=== PATIENT | male | born 1960 | race Two or more races ===

== ENCOUNTER 2024-02-26 09:48 | Inpatient (IN) | payer MEDICAID, OTHER ==
[~2024-02-26] VITALS: Ht 167.6 cm; Wt 75.0 kg
[2024-02-26 10:16] LABS: Basophils # (auto) 0 10 ^3/uL (0-0.2); Basophils % (auto) 0.2 % (0.0-2.0); Eosinophils # (auto) 0.1 10 ^3/uL (0-0.8); Eosinophils % (auto) 2.2 % (0.0-7.0); Hematocrit 25.5 % (41.0-53.0); Hemoglobin 8.3 g/dL (13.5-17.5); Lymphocytes # (auto) 0.7 10 ^3/uL (0.4-5.4); Lymphocytes % (auto) 21.7 % (10.0-50.0); Mean Corpuscular Hemoglobin 26.6 pg (28.0-32.0); Mean Corpuscular Hgb Conc. 32.5 g/dL (32.0-36.0); Mean Corpuscular Volume 81.7 fL (80.0-100.0); Monocytes # (auto) 0.5 10 ^3/uL (0-1.3); Monocytes % (auto) 14.9 % (0.0-12.0); Nucleated Red Blood Cells % 0.1 %; Red Blood Cells 3.12 10^6/uL (4.5-5.90); Red Cell Distribution Width 20.6 % (11.8-14.3); White Blood Cell 3.3 10^3/uL (4.4-10.8)
[2024-02-26 10:35] LABS: Alanine Aminotransferase 19 U/L (7-40); Albumin 2.5 g/dL (3.2-4.8); Alkaline Phosphatase 98 U/L (46-116); Anion Gap 10 (5-15); Aspartate Aminotransferase 31 U/L (13-40); BUN/Creatinine Ratio 10.1 (10.0-20.0); Bilirubin, Total 0.8 mg/dL (0.2-1.0); Blood Alcohol < 3.0 mg/dL (<10); Blood Urea Nitrogen 11 mg/dL (9-23); Calcium 7.7 mg/dL (8.7-10.4); Carbon Dioxide 20 mmol/L (20-30); Chloride 113 mmol/L (98-107); Glucose 304 mg/dL (74-106); Magnesium 1.1 mg/dL (1.6-2.6); Sodium 143 mmol/L (136-145); Total Protein 6.1 g/dL (5.7-8.2)
[2024-02-26 10:51] VITALS: RESP 14
[2024-02-26] MEDS: POTASSIUM CHL 20MEQ/100ML 100 ML IV ONE (12:26)
[2024-02-26] MEDS: SODIUM CHLORIDE 0.9% 1,000 ML IV SCH (13:15)
[2024-02-26] MEDS ORDERED: MORPHINE SULFATE INJ 2 MG/ml SYRG IV PRN (13:15)
[2024-02-26] MEDS ORDERED: DOCUSATE SOD 100 MG CAP PO PRN (13:15)
[2024-02-26] MEDS ORDERED: NITROGLYCERIN 0.4 MG SL TAB SL PRN (13:15)
[2024-02-26 13:19] LABS: Urine Bacteria FEW /hpf (None Seen); Urine Blood TRACE /uL (Negative); Urine Clarity Clear (Clear); Urine Color Yellow (Yellow); Urine Hyaline Cast MANY /lpf (0 - 2); Urine Protein, UAD Negative (Negative); Urine Specific Gravity 1.018 (1.001-1.035); Urine Urobilinogen 2 mg/dL (Negative); Urine WBC 1 /hpf (0 - 3); Urine pH 5.5 (5.0-9.0)
[2024-02-26 13:29] LABS: Amphetamine Screen, Urine Neg (NEGATIVE); Barbiturate Scree,Urine Neg (NEGATIVE); Benzodiazephine Screen, Urine Neg (NEGATIVE); Cocaine Screen, Urine Neg (NEGATIVE); Opiate Scree,Urine Neg (NEGATIVE)
[2024-02-26 13:30] LABS: Cannabinoid Screen, Urine Neg (NEGATIVE); Phencyclidine Screen, Urine Neg (NEGATIVE)
[2024-02-26] MEDS: MAGNESIUM SULFATE 1GM/100ML 100 ML IV SCH (14:15)
[2024-02-26 15:12] LABS: % Iron Saturation 11.4 % (20-55)
[2024-02-26 15:31] LABS: Folate (Folic Acid) 15.03 ng/mL (>5.38)
[2024-02-26 15:49] LABS: INR 1.39 (0.9-1.15); Prothrombin Time 14.4 sec (9.3-11.8)
[2024-02-26] MEDS: PANTOPRAZOLE 40 MG/10 ML VIAL INJ IV ONE (16:19)
[2024-02-26] MEDS: LORazepam 2MG/ML-1ML VIAL IV ONE (16:30)
[2024-02-26] MEDS: LORazepam 2MG/ML-1ML VIAL ONE (16:36)
[2024-02-26] MEDS: LACTULOSE 20Gm/30ML SOLN PO ONE (17:00)
[2024-02-26 19:25] VITALS: PULSE 105; RESP 18; O2SAT 96
[2024-02-26] MEDS: hydrALAZINE HCL 20 MG/ML VL IV PRN (20:28)
[2024-02-26] MEDS: LACTULOSE 20Gm/30ML SOLN PO SCH (22:40)
[2024-02-26 23:10] VITALS: PULSE 106; RESP 17; O2SAT 98
[2024-02-27] VITALS (7 sets, daily range): BP systolic 150–167; BP diastolic 65–88; PULSE 88–111; RESP 17–18; TEMP 97.9–99.3; O2SAT 96–99
[2024-02-27] MEDS ORDERED: AML5T PO (01:09)
[2024-02-27] MEDS ORDERED: GABA-1250 PO (01:09)
[2024-02-27] MEDS ORDERED: METF-371 PO (01:09)
[2024-02-27 05:46] LABS: Basophils # (auto) 0 10 ^3/uL (0-0.2); Hemoglobin 10.2 g/dL (13.5-17.5); Lymphocytes # (auto) 1.2 10 ^3/uL (0.4-5.4); Neutrophils # (auto) 3.8 10 ^3/uL (1.6-8.6); White Blood Cell 6.1 10^3/uL (4.4-10.8)
[2024-02-27 05:50] LABS: Basophils % (auto) 0.5 % (0.0-2.0); Eosinophils # (auto) 0.2 10 ^3/uL (0-0.8); Eosinophils % (auto) 2.7 % (0.0-7.0); Hematocrit 30.6 % (41.0-53.0); Lymphocytes % (auto) 19.6 % (10.0-50.0); Mean Corpuscular Hemoglobin 27.1 pg (28.0-32.0); Mean Corpuscular Hgb Conc. 33.3 g/dL (32.0-36.0); Mean Corpuscular Volume 81.4 fL (80.0-100.0); Monocytes % (auto) 15.8 % (0.0-12.0); Neutrophils % (auto) 61.4 % (37.0-80.0); Red Blood Cells 3.76 10^6/uL (4.5-5.90)
[2024-02-27 06:11] LABS: Alanine Aminotransferase 22 U/L (7-40); Albumin 2.9 g/dL (3.2-4.8); Alkaline Phosphatase 99 U/L (46-116); Anion Gap 12 (5-15); Aspartate Aminotransferase 33 U/L (13-40); BUN/Creatinine Ratio 8.9 (10.0-20.0); Blood Urea Nitrogen 7 mg/dL (9-23); Calcium 8.9 mg/dL (8.7-10.4); Carbon Dioxide 21 mmol/L (20-30); Chloride 109 mmol/L (98-107); Glucose 251 mg/dL (74-106); Potassium 3.2 mmol/L (3.5-5.1); Sodium 142 mmol/L (136-145)
[2024-02-27 06:12] LABS: Bilirubin, Total 2.1 mg/dL (0.2-1.0); Total Protein 7.9 g/dL (5.7-8.2)
[2024-02-27 08:06] LABS: RPR Non Reactive (Non Reactive)
[2024-02-27] MEDS: PANTOPRAZOLE 40 MG/10 ML VIAL INJ IV SCH (08:44)
[2024-02-27] MEDS: MAGNESIUM SULFATE 1GM/100ML 100 ML IV ONE (08:45)
[2024-02-27] MEDS: POTASSIUM CHL 20MEQ/100ML 100 ML IV SCH (10:10)
[2024-02-27] MEDS ORDERED: POTASSIUM CHL 20MEQ/100ML 100 ML IV SCH (11:45)
[2024-02-27] MEDS ORDERED: DEXTROSE (50%) 50ML SYRG IV PRN (12:00)
[2024-02-27] MEDS ORDERED: CYANOCOBALAMIN 500 MCG TAB PO ONE (12:00)
[2024-02-27] MEDS: rifAXIMin 550 MG TAB PO ONE (12:15)
[2024-02-27] MEDS: ERGOCALCIFEROL 50,000 UNIT(1.25MG) CAP PO SCH (14:00)
[2024-02-27] MEDS: cefTRIAXone 1GM/50ML D5W 50 ML IV ONE (14:05)
[2024-02-27] MEDS: SODIUM CHLORIDE 0.9% 1,000 ML IV SCH (14:30)
[2024-02-27] MEDS: KETOROLAC TROMETH 30 MG/ML 1ML VIAL IV PRN (15:55)
[2024-02-27 15:58] LABS: Lactic Acid w/Reflex 4.3 mmol/L (0.4-2.0)
[2024-02-27] MEDS: ACCU-CHEK COMFORT CURVE STRIP VI SCH (17:05)
[2024-02-27] MEDS: InsuLIN REG 1unit/0.01ml Soln (100units/ml) SC SCH (17:27)
[2024-02-27 19:31] LABS: Lactic Acid w/Reflex 3.8 mmol/L (0.4-2.0)
[2024-02-27] MEDS: rifAXIMin 550 MG TAB PO SCH (22:54)
[2024-02-28] VITALS (7 sets, daily range): BP systolic 154–179; BP diastolic 73–85; PULSE 74–92; RESP 18; TEMP 97.4–98.4; O2SAT 96–99
[2024-02-28 00:31] LABS: Lactic Acid w/Reflex 3.7 mmol/L (0.4-2.0)
[2024-02-28 06:57] LABS: Basophils # (auto) 0 10 ^3/uL (0-0.2); Eosinophils # (auto) 0.2 10 ^3/uL (0-0.8); Hematocrit 30.8 % (41.0-53.0); Lymphocytes # (auto) 1.1 10 ^3/uL (0.4-5.4); Mean Corpuscular Hgb Conc. 33.3 g/dL (32.0-36.0); Monocytes # (auto) 0.9 10 ^3/uL (0-1.3)
[2024-02-28 07:07] LABS: Basophils % (auto) 0.4 % (0.0-2.0); Eosinophils % (auto) 2.5 % (0.0-7.0); Hemoglobin 10.2 g/dL (13.5-17.5); Lymphocytes % (auto) 16.5 % (10.0-50.0); Mean Corpuscular Hemoglobin 27.2 pg (28.0-32.0); Mean Corpuscular Volume 81.7 fL (80.0-100.0); Monocytes % (auto) 14.1 % (0.0-12.0); Neutrophils # (auto) 4.3 10 ^3/uL (1.6-8.6); Neutrophils % (auto) 66.5 % (37.0-80.0); Nucleated Red Blood Cells % 0.1 %; Red Blood Cells 3.76 10^6/uL (4.5-5.90); White Blood Cell 6.5 10^3/uL (4.4-10.8)
[2024-02-28 07:10] LABS: Red Cell Distribution Width 21.5 % (11.8-14.3)
[2024-02-28 07:23] LABS: Alanine Aminotransferase 22 U/L (7-40); Alkaline Phosphatase 102 U/L (46-116); Anion Gap 10 (5-15); Aspartate Aminotransferase 29 U/L (13-40); BUN/Creatinine Ratio 10.3 (10.0-20.0); Blood Urea Nitrogen 7 mg/dL (9-23); Calcium 8.8 mg/dL (8.7-10.4); Carbon Dioxide 21 mmol/L (20-30); Chloride 109 mmol/L (98-107); Glucose 229 mg/dL (74-106); Magnesium 1.4 mg/dL (1.6-2.6); Potassium 3.1 mmol/L (3.5-5.1); Sodium 140 mmol/L (136-145)
[2024-02-28 07:24] LABS: Bilirubin, Total 2.1 mg/dL (0.2-1.0); Total Protein 7.6 g/dL (5.7-8.2)
[2024-02-28 07:27] LABS: Lactic Acid w/Reflex 2.8 mmol/L (0.4-2.0)
[2024-02-28] MEDS: cefTRIAXone 1GM/50ML D5W 50 ML IV SCH (09:24)
[2024-02-28] MEDS ORDERED: CYANOCOBALAMIN 500 MCG TAB PO SCH (10:00)
[2024-02-28] MEDS: SODIUM CHLORIDE 0.9% 1,000 ML IV SCH (21:57)
[2024-02-29] VITALS (9 sets, daily range): BP systolic 135–171; BP diastolic 70–84; PULSE 77–98; RESP 15–18; TEMP 97.9–98.2; O2SAT 96–100
[2024-02-29 07:49] LABS: Basophils # (auto) 0 10 ^3/uL (0-0.2); Eosinophils # (auto) 0.1 10 ^3/uL (0-0.8); Neutrophils # (auto) 4.3 10 ^3/uL (1.6-8.6)
[2024-02-29 07:53] LABS: Basophils % (auto) 0.6 % (0.0-2.0); Eosinophils % (auto) 2.2 % (0.0-7.0); Hematocrit 32.4 % (41.0-53.0); Hemoglobin 10.8 g/dL (13.5-17.5); Lymphocytes # (auto) 1.2 10 ^3/uL (0.4-5.4); Lymphocytes % (auto) 18.5 % (10.0-50.0); Mean Corpuscular Hemoglobin 27.2 pg (28.0-32.0); Mean Corpuscular Hgb Conc. 33.3 g/dL (32.0-36.0); Mean Corpuscular Volume 81.4 fL (80.0-100.0); Monocytes % (auto) 14.3 % (0.0-12.0); Neutrophils % (auto) 64.4 % (37.0-80.0); Nucleated Red Blood Cells % 0.2 %; Red Blood Cells 3.98 10^6/uL (4.5-5.90); White Blood Cell 6.7 10^3/uL (4.4-10.8)
[2024-02-29 07:56] LABS: Red Cell Distribution Width 22.4 % (11.8-14.3)
[2024-02-29 08:14] LABS: Alanine Aminotransferase 24 U/L (7-40); Albumin 2.9 g/dL (3.2-4.8); Alkaline Phosphatase 103 U/L (46-116); Anion Gap 14 (5-15); Aspartate Aminotransferase 31 U/L (13-40); BUN/Creatinine Ratio 14.3 (10.0-20.0); Blood Urea Nitrogen 9 mg/dL (9-23); Calcium 8.5 mg/dL (8.7-10.4); Carbon Dioxide 17 mmol/L (20-30); Chloride 107 mmol/L (98-107); Glucose 223 mg/dL (74-106); Lactic Acid w/Reflex 2.4 mmol/L (0.4-2.0); Magnesium 1.3 mg/dL (1.6-2.6); Phosphorus 3.7 mg/dL (2.4-5.1); Potassium 3.6 mmol/L (3.5-5.1); Sodium 138 mmol/L (136-145)
[2024-02-29 08:15] LABS: Bilirubin, Total 2.3 mg/dL (0.2-1.0); Total Protein 7.6 g/dL (5.7-8.2)
[2024-02-29] MEDS: ENOXAPARIN SOD 40 MG/0.4 ML SYRINGE SC ONE (09:30)
[2024-02-29] MEDS: ENOXAPARIN SOD 40 MG/0.4 ML SYRINGE SC SCH (10:00)
[2024-02-29] MEDS: FUROSEMIDE 40 MG/4 ML VIAL IV ONE (11:48)
[2024-02-29] MEDS: SPIRONOLACTONE 25 MG TAB PO ONE (11:48)
[2024-02-29] MEDS: INSULIN LANTUS (GLARGINE) 1 /0.01ml (100units/ml) SC SCH (22:00)
[2024-03-01] VITALS (9 sets, daily range): BP systolic 124–163; BP diastolic 56–86; PULSE 81–92; RESP 15–20; TEMP 97.9–98.7; O2SAT 96–99
[2024-03-01 05:51] LABS: Basophils # (auto) 0 10 ^3/uL (0-0.2); Basophils % (auto) 0.6 % (0.0-2.0); Eosinophils # (auto) 0.2 10 ^3/uL (0-0.8); Lymphocytes # (auto) 1.2 10 ^3/uL (0.4-5.4); Mean Corpuscular Volume 81.1 fL (80.0-100.0); Nucleated Red Blood Cells % 0.1 %
[2024-03-01 05:53] LABS: Eosinophils % (auto) 3.4 % (0.0-7.0); Hematocrit 32.4 % (41.0-53.0); Hemoglobin 10.8 g/dL (13.5-17.5); Lymphocytes % (auto) 22.4 % (10.0-50.0); Mean Corpuscular Hgb Conc. 33.3 g/dL (32.0-36.0); Monocytes # (auto) 0.7 10 ^3/uL (0-1.3); Monocytes % (auto) 13.5 % (0.0-12.0); Neutrophils # (auto) 3.3 10 ^3/uL (1.6-8.6); Neutrophils % (auto) 60.1 % (37.0-80.0); Red Blood Cells 3.99 10^6/uL (4.5-5.90); White Blood Cell 5.5 10^3/uL (4.4-10.8)
[2024-03-01 05:57] LABS: Red Cell Distribution Width 21.8 % (11.8-14.3)
[2024-03-01 06:02] LABS: Chloride 103 mmol/L (98-107); Sodium 136 mmol/L (136-145)
[2024-03-01 06:03] LABS: Anion Gap 10 (5-15); Calcium 8.4 mg/dL (8.7-10.4); Carbon Dioxide 23 mmol/L (20-30)
[2024-03-01 06:08] LABS: Blood Urea Nitrogen 9 mg/dL (9-23); Glucose 235 mg/dL (74-106)
[2024-03-01] MEDS ORDERED: SPIRONOLACTONE 25 MG TAB PO SCH (10:00)
[2024-03-01] MEDS ORDERED: FUROSEMIDE 40 MG/4 ML VIAL IV SCH (10:00)
[2024-03-01] MEDS ORDERED: POTASSIUM CHL 20MEQ/100ML 100 ML IV SCH (10:30)
[2024-03-01] MEDS ORDERED: POTASSIUM EFFERVESENT TAB 25 MEQ GT ONE (10:45)
[2024-03-01] MEDS: THIAMINE 100mg/ml INJ (200mg/2ml VIAL) IV ONE (12:08)
[2024-03-01] MEDS: POTASSIUM EFFERVESENT TAB 25 MEQ PO ONE (12:10)
[2024-03-01 13:15] LABS: Lactic Acid w/Reflex 4.6 mmol/L (0.4-2.0)
[2024-03-01] MEDS: SODIUM CHLORIDE 0.9% 1,000 ML IV ONE (14:23)
[2024-03-01] MEDS: KETOROLAC TROMETH 30 MG/ML 1ML VIAL IV ONE (14:25)
[2024-03-01] MEDS: FOLIC ACID 1 MG, MAGNESIUM SULF SDV 50% 8 MEQ, MULTIPLE VITAMIN 10 ML, THIAMINE INJ 100... INJ SCH (18:33)
[2024-03-01 19:23] LABS: Lactic Acid w/Reflex 2.4 mmol/L (0.4-2.0)
[2024-03-02 05:00] VITALS: BP 148/72; PULSE 92; RESP 17; TEMP 98.6; O2SAT 97
[2024-03-02 06:01] LABS: Basophils # (auto) 0 10 ^3/uL (0-0.2); Basophils % (auto) 0.3 % (0.0-2.0); Eosinophils # (auto) 0.2 10 ^3/uL (0-0.8); Eosinophils % (auto) 4.2 % (0.0-7.0); Hematocrit 29.1 % (41.0-53.0); Hemoglobin 9.7 g/dL (13.5-17.5); Lymphocytes # (auto) 1.3 10 ^3/uL (0.4-5.4); Lymphocytes % (auto) 23.7 % (10.0-50.0); Mean Corpuscular Hemoglobin 27.1 pg (28.0-32.0); Mean Corpuscular Hgb Conc. 33.5 g/dL (32.0-36.0); Mean Corpuscular Volume 81.1 fL (80.0-100.0); Monocytes # (auto) 0.9 10 ^3/uL (0-1.3); Monocytes % (auto) 16.1 % (0.0-12.0); Neutrophils # (auto) 3.2 10 ^3/uL (1.6-8.6); Neutrophils % (auto) 55.7 % (37.0-80.0); Nucleated Red Blood Cells % 0.1 %; Red Blood Cells 3.59 10^6/uL (4.5-5.90); White Blood Cell 5.6 10^3/uL (4.4-10.8)
[2024-03-02 06:04] LABS: Red Cell Distribution Width 22.2 % (11.8-14.3)
[2024-03-02 06:22] LABS: Alanine Aminotransferase 23 U/L (7-40); Albumin 2.5 g/dL (3.2-4.8); Alkaline Phosphatase 100 U/L (46-116); Anion Gap 8 (5-15); Aspartate Aminotransferase 28 U/L (13-40); BUN/Creatinine Ratio 17.9 (10.0-20.0); Bilirubin, Total 1.9 mg/dL (0.2-1.0); Blood Urea Nitrogen 12 mg/dL (9-23); Carbon Dioxide 22 mmol/L (20-30); Chloride 106 mmol/L (98-107); Glucose 179 mg/dL (74-106); Potassium 3.2 mmol/L (3.5-5.1); Sodium 136 mmol/L (136-145); Total Protein 7.1 g/dL (5.7-8.2)
[2024-03-02 08:00] VITALS: PULSE 79; RESP 21; O2SAT 96
[2024-03-02 08:42] VITALS: BP 133/68; PULSE 79; RESP 21; TEMP 98.9; O2SAT 96
[2024-03-02] MEDS: THIAMINE 100mg/ml INJ (200mg/2ml VIAL) IV SCH (10:00)
[2024-03-02] MEDS: APIXABAN 5 MG TAB PO SCH (11:00)
[2024-03-02] MEDS: POTASSIUM CHL 20MEQ/100ML 100 ML IV SCH (11:01)
[2024-03-02 13:00] VITALS: BP 141/70; PULSE 89; RESP 18; TEMP 98.1; O2SAT 98
[2024-03-02] MEDS: PANTOPRAZOLE 40 MG TAB PO ONE (15:12)
[2024-03-02] MEDS: POTASSIUM EFFERVESENT TAB 25 MEQ PO ONE (15:16)
[2024-03-02 16:58] VITALS: BP 162/74; PULSE 76; RESP 17; TEMP 97.9; O2SAT 94
[2024-03-02 21:00] VITALS: BP 135/69; PULSE 90; RESP 17; TEMP 98.6; O2SAT 95
[2024-03-03] MEDS: ACETAMINOPHEN 325 MG TAB PO PRN (02:45)
[2024-03-03] MEDS: PANTOPRAZOLE 40 MG TAB PO SCH (05:59)
[2024-03-03 08:00] VITALS: PULSE 87; RESP 17
[2024-03-03 09:00] VITALS: BP 156/76; PULSE 90; RESP 17; TEMP 98; O2SAT 98
[2024-03-03] MEDS: ONDANSETRON HCL 4 MG/2 ML VIAL IV PRN (10:21)
[2024-03-03 13:00] VITALS: BP 134/69; PULSE 84; RESP 17; TEMP 98.6; O2SAT 98
[2024-03-03 17:14] VITALS: BP 156/76; PULSE 82; RESP 17; TEMP 98.3; O2SAT 95
[2024-03-03 21:00] VITALS: BP 145/68; PULSE 79; RESP 17; TEMP 98; O2SAT 95
[2024-03-04 01:00] VITALS: BP 135/72; PULSE 75; RESP 17; TEMP 98; O2SAT 99
[2024-03-04 05:00] VITALS: BP 141/65; PULSE 72; RESP 17; TEMP 98.6; O2SAT 98
[2024-03-04 09:07] VITALS: BP 161/72; PULSE 74; RESP 18; TEMP 98.2; O2SAT 98
[2024-03-04 11:32] LABS: Basophils # (auto) 0 10 ^3/uL (0-0.2); Basophils % (auto) 0.5 % (0.0-2.0); Eosinophils # (auto) 0.2 10 ^3/uL (0-0.8); Eosinophils % (auto) 4.1 % (0.0-7.0); Hematocrit 27.6 % (41.0-53.0); Hemoglobin 8.5 g/dL (13.5-17.5); Lymphocytes # (auto) 0.9 10 ^3/uL (0.4-5.4); Lymphocytes % (auto) 20.8 % (10.0-50.0); Mean Corpuscular Hemoglobin 27.2 pg (28.0-32.0); Mean Corpuscular Hgb Conc. 30.8 g/dL (32.0-36.0); Mean Corpuscular Volume 88.1 fL (80.0-100.0); Monocytes # (auto) 0.8 10 ^3/uL (0-1.3); Monocytes % (auto) 17.9 % (0.0-12.0); Neutrophils # (auto) 2.5 10 ^3/uL (1.6-8.6); Neutrophils % (auto) 56.7 % (37.0-80.0); Nucleated Red Blood Cells % 0.1 %; Red Blood Cells 3.14 10^6/uL (4.5-5.90); Red Cell Distribution Width 22.3 % (11.8-14.3); White Blood Cell 4.5 10^3/uL (4.4-10.8)
[2024-03-04 12:03] LABS: Lactic Acid w/Reflex 2.2 mmol/L (0.4-2.0)
[2024-03-04] MEDS: IBUPROFEN 600 MG TAB PO ONE (12:27)
[2024-03-04 13:00] VITALS: BP 134/73; PULSE 81; RESP 20; TEMP 98.2; O2SAT 94
[2024-03-04 13:02] LABS: Chloride 108 mmol/L (98-107); Potassium 3.5 mmol/L (3.5-5.1); Sodium 136 mmol/L (136-145)
[2024-03-04 13:05] LABS: Carbon Dioxide 21 mmol/L (20-30)
[2024-03-04 13:11] LABS: Alkaline Phosphatase 116 U/L (46-116); BUN/Creatinine Ratio 8.6 (10.0-20.0); Blood Urea Nitrogen 6 mg/dL (9-23); Glucose 237 mg/dL (74-106); Magnesium 1.7 mg/dL (1.6-2.6)
[2024-03-04 13:12] LABS: Alanine Aminotransferase 24 U/L (7-40); Aspartate Aminotransferase 30 U/L (13-40)
[2024-03-04 13:13] LABS: Albumin 2.6 g/dL (3.2-4.8); Anion Gap 7 (5-15); Bilirubin, Total 1.5 mg/dL (0.2-1.0); Total Protein 7.1 g/dL (5.7-8.2)
[2024-03-04] MEDS: SODIUM CHLORIDE 0.9% 1,000 ML IV SCH (14:15)
[2024-03-04 17:04] VITALS: BP 148/70; PULSE 75; RESP 20; TEMP 98.4; O2SAT 97
[2024-03-04 21:00] VITALS: BP 138/75; PULSE 83; RESP 20; TEMP 98.5; O2SAT 91
[2024-03-05 01:53] VITALS: BP 130/77; PULSE 78; RESP 19; TEMP 98.4; O2SAT 94
[2024-03-05 05:00] VITALS: BP 131/69; PULSE 76; RESP 19; TEMP 98.6; O2SAT 95
[2024-03-05 06:39] LABS: Basophils # (auto) 0 10 ^3/uL (0-0.2); Basophils % (auto) 0.5 % (0.0-2.0); Eosinophils # (auto) 0.3 10 ^3/uL (0-0.8); Hematocrit 28.8 % (41.0-53.0); Hemoglobin 9.8 g/dL (13.5-17.5); Lymphocytes # (auto) 1.4 10 ^3/uL (0.4-5.4); Lymphocytes % (auto) 25.5 % (10.0-50.0); Mean Corpuscular Hemoglobin 28.3 pg (28.0-32.0); Mean Corpuscular Hgb Conc. 33.9 g/dL (32.0-36.0); Mean Corpuscular Volume 83.3 fL (80.0-100.0); Monocytes # (auto) 0.8 10 ^3/uL (0-1.3); Neutrophils # (auto) 2.9 10 ^3/uL (1.6-8.6); Nucleated Red Blood Cells % 0.2 %; Red Blood Cells 3.45 10^6/uL (4.5-5.90); White Blood Cell 5.4 10^3/uL (4.4-10.8)
[2024-03-05 06:47] LABS: INR 1.4 (0.9-1.15); Partial Thromboplastin Time 27.1 SEC (24.5-34.5); Prothrombin Time 14.5 sec (9.3-11.8)
[2024-03-05 06:57] LABS: Alanine Aminotransferase 21 U/L (7-40); Albumin 2.4 g/dL (3.2-4.8); Alkaline Phosphatase 111 U/L (46-116); Anion Gap 11 (5-15); Aspartate Aminotransferase 28 U/L (13-40); BUN/Creatinine Ratio 11.3 (10.0-20.0); Blood Urea Nitrogen 7 mg/dL (9-23); Calcium 7.7 mg/dL (8.7-10.4); Carbon Dioxide 20 mmol/L (20-30); Chloride 107 mmol/L (98-107); Potassium 3.4 mmol/L (3.5-5.1); Sodium 138 mmol/L (136-145)
[2024-03-05 06:58] LABS: Bilirubin, Total 1.4 mg/dL (0.2-1.0); Total Protein 6.7 g/dL (5.7-8.2)
[2024-03-05 07:00] LABS: Glucose 128 mg/dL (74-106)
[2024-03-05 07:16] LABS: Lactic Acid w/Reflex 2.2 mmol/L (0.4-2.0)
[2024-03-05 09:00] VITALS: BP 137/67; PULSE 77; RESP 18; TEMP 98; O2SAT 97
[2024-03-05] MEDS: SPIRONOLACTONE 25 MG TAB PO SCH (11:28)
[2024-03-05] MEDS: POTASSIUM EFFERVESENT TAB 25 MEQ PO ONE (11:28)
[2024-03-05] MEDS: KETOROLAC TROMETH 30 MG/ML 1ML VIAL IV PRN (11:37)
[2024-03-05 14:03] LABS: Lactic Acid w/Reflex 2.9 mmol/L (0.4-2.0)
[2024-03-05 17:09] VITALS: BP_SYST 114; BP_SYST 135; BP_DIAS 66; BP_DIAS 76; PULSE 101; PULSE 78; RESP 17; TEMP 98; O2SAT 99
[2024-03-05 19:25] LABS: Lactic Acid w/Reflex 2.3 mmol/L (0.4-2.0)
[2024-03-05 21:00] VITALS: BP 134/62; PULSE 78; RESP 16; TEMP 97.6; O2SAT 98
[2024-03-06 01:00] VITALS: BP 130/72; PULSE 72; RESP 18; TEMP 98; O2SAT 97
[2024-03-06 05:00] VITALS: BP 158/70; PULSE 76; RESP 18; TEMP 97.9; O2SAT 98
[2024-03-06 08:40] VITALS: BP 140/53; PULSE 78; RESP 16; TEMP 98; O2SAT 98
[2024-03-06] MEDS: MORPHINE SULFATE INJ 2 MG/ml SYRG IV PRN (09:47)
[2024-03-06 12:58] VITALS: BP 151/70; PULSE 75; RESP 16; TEMP 98.3; O2SAT 97
[2024-03-06 13:47] LABS: Basophils # (auto) 0 10 ^3/uL (0-0.2); Basophils % (auto) 0.4 % (0.0-2.0); Eosinophils # (auto) 0.2 10 ^3/uL (0-0.8); Hematocrit 28.5 % (41.0-53.0); Hemoglobin 9.3 g/dL (13.5-17.5); Lymphocytes # (auto) 1.5 10 ^3/uL (0.4-5.4); Lymphocytes % (auto) 21.1 % (10.0-50.0); Mean Corpuscular Hemoglobin 27.6 pg (28.0-32.0); Mean Corpuscular Hgb Conc. 32.6 g/dL (32.0-36.0); Mean Corpuscular Volume 84.5 fL (80.0-100.0); Monocytes # (auto) 0.9 10 ^3/uL (0-1.3); Monocytes % (auto) 12.4 % (0.0-12.0); Neutrophils # (auto) 4.5 10 ^3/uL (1.6-8.6); Neutrophils % (auto) 63.1 % (37.0-80.0); Nucleated Red Blood Cells % 0.1 %; Red Blood Cells 3.37 10^6/uL (4.5-5.90); Red Cell Distribution Width 23.8 % (11.8-14.3); White Blood Cell 7.1 10^3/uL (4.4-10.8)
[2024-03-06 13:57] LABS: Alanine Aminotransferase 20 U/L (7-40); Albumin 2.4 g/dL (3.2-4.8); Alkaline Phosphatase 116 U/L (46-116); Anion Gap 8 (5-15); Aspartate Aminotransferase 30 U/L (13-40); BUN/Creatinine Ratio 11.4 (10.0-20.0); Bilirubin, Total 1.2 mg/dL (0.2-1.0); Blood Urea Nitrogen 8 mg/dL (9-23); Carbon Dioxide 21 mmol/L (20-30); Chloride 108 mmol/L (98-107); Glucose 201 mg/dL (74-106); Potassium 4.4 mmol/L (3.5-5.1); Sodium 137 mmol/L (136-145)
[2024-03-06 13:58] LABS: Total Protein 6.6 g/dL (5.7-8.2)
[2024-03-06 17:00] VITALS: BP 139/70; PULSE 77; RESP 18; TEMP 98.6; O2SAT 96
[2024-03-06] MEDS: LIDOCAINE 5% TOPICAL PATCH TOP ONE (18:15)
[2024-03-06 21:00] VITALS: BP 137/66; PULSE 83; RESP 20; TEMP 97.9; O2SAT 97
[2024-03-07 01:00] VITALS: BP 152/69; PULSE 85; RESP 20; TEMP 97.9; O2SAT 96
[2024-03-07 05:00] VITALS: BP 145/61; PULSE 82; RESP 20; TEMP 97.8; O2SAT 97
[2024-03-07 08:00] VITALS: BP 192/88; PULSE 89; RESP 18; TEMP 97.7; O2SAT 95
[2024-03-07] MEDS: LIDOCAINE 5% TOPICAL PATCH TOP SCH (09:04)
[2024-03-07] MEDS: HYDROcodone-ACET 10/325MG TAB PO PRN (10:43)
[2024-03-07 12:00] VITALS: BP 150/73; PULSE 85; RESP 18; TEMP 98.3; O2SAT 97
[2024-03-07 16:00] VITALS: BP 145/70; PULSE 88; RESP 18; TEMP 98.6; O2SAT 93
[2024-03-07 21:00] VITALS: BP 152/72; PULSE 95; RESP 18; TEMP 98.4; O2SAT 98
[2024-03-08] VITALS (19 sets, daily range): BP systolic 110–198; BP diastolic 55–96; PULSE 74–116; RESP 12–18; TEMP 97.5–98.6; O2SAT 95–100
[2024-03-08] MEDS: MORPHINE SULFATE INJ 2 MG/ml SYRG IV PRN (01:00)
[2024-03-08 06:01] LABS: Basophils # (auto) 0 10 ^3/uL (0-0.2); Basophils % (auto) 0.6 % (0.0-2.0); Eosinophils # (auto) 0.2 10 ^3/uL (0-0.8); Eosinophils % (auto) 4.5 % (0.0-7.0); Hematocrit 25.5 % (41.0-53.0); Hemoglobin 8.5 g/dL (13.5-17.5); Lymphocytes # (auto) 1.5 10 ^3/uL (0.4-5.4); Lymphocytes % (auto) 33.6 % (10.0-50.0); Mean Corpuscular Hemoglobin 27.8 pg (28.0-32.0); Mean Corpuscular Hgb Conc. 33.2 g/dL (32.0-36.0); Mean Corpuscular Volume 83.7 fL (80.0-100.0); Monocytes # (auto) 0.7 10 ^3/uL (0-1.3); Monocytes % (auto) 15.7 % (0.0-12.0); Neutrophils # (auto) 2.1 10 ^3/uL (1.6-8.6); Neutrophils % (auto) 45.6 % (37.0-80.0); Red Blood Cells 3.05 10^6/uL (4.5-5.90); White Blood Cell 4.5 10^3/uL (4.4-10.8)
[2024-03-08 06:02] LABS: Red Cell Distribution Width 25.1 % (11.8-14.3)
[2024-03-08 06:06] LABS: INR 1.28 (0.9-1.15); Partial Thromboplastin Time 29.4 SEC (24.5-34.5); Prothrombin Time 13.3 sec (9.3-11.8)
[2024-03-08 06:14] LABS: Alanine Aminotransferase 22 U/L (7-40); Alkaline Phosphatase 116 U/L (46-116); Anion Gap 7 (5-15); BUN/Creatinine Ratio 10.8 (10.0-20.0); Blood Urea Nitrogen 7 mg/dL (9-23); Calcium 8.1 mg/dL (8.7-10.4); Carbon Dioxide 21 mmol/L (20-30); Chloride 111 mmol/L (98-107); Glucose 98 mg/dL (74-106); Potassium 3.9 mmol/L (3.5-5.1); Sodium 139 mmol/L (136-145)
[2024-03-08 06:15] LABS: Albumin 2.4 g/dL (3.2-4.8); Aspartate Aminotransferase 32 U/L (13-40); Bilirubin, Total 1.1 mg/dL (0.2-1.0); Total Protein 6.2 g/dL (5.7-8.2)
[2024-03-08 07:28] LABS: Anisocytosis Moderate; Platelet Estimate Decreased
[2024-03-08] MEDS ORDERED: MORPHINE SULF PF 5 MG/10 ML VIAL ONE ×2 (07:53→08:09)
[2024-03-08] MEDS: TRANEXAMIC ACID 0 ML ONE (07:55)
[2024-03-08] MEDS: IOHEXOL 350 MG/ML 100ML IJ ONE ×2 (07:55)
[2024-03-08] MEDS: VANCOMYCIN HCL 1000 MG VL ONE ×2 (07:55→07:56)
[2024-03-08] MEDS: TRANEXAMIC ACID 20 ML ONE (07:56)
[2024-03-08] MEDS: ceFAZolin 2 GM/D5W50ml 50 ML IV ONE ×2 (07:56→08:43)
[2024-03-08] MEDS: BUPIVACAINE 0.25% INJ 50ML VIAL ONE (07:56)
[2024-03-08] MEDS ORDERED: fentaNYL CITRATE 100 MCG/2 ML VL ONE (08:08)
[2024-03-08] MEDS ORDERED: MIDAZOLAM HCL 2MG/2ML 2ml VIAL (1mg/ml) ONE (08:09)
[2024-03-08] MEDS: TETRACAINE 1% INJ 2 ML VIAL IJ ONE (08:43)
[2024-03-08 08:57] LABS: Hepatitis B Surface Antigen Negative (Negative)
[2024-03-08 09:19] LABS: Hepatitis A Ab IgM Negative; Hepatitis B Core IgM Negative
[2024-03-08] MEDS: KETOROLAC TROMETH 30 MG/ML 1ML VIAL ONE (09:30)
[2024-03-08 09:42] LABS: Hepatitis C Antibody Negative (Negative)
[2024-03-08] MEDS ORDERED: DexAMETHasone SOD PHOS 10MG/1ML VIAL INJ IV PRN (10:15)
[2024-03-08] MEDS ORDERED: ONDANSETRON HCL 4 MG/2 ML VIAL IV PRN (10:15)
[2024-03-08] MEDS ORDERED: ePHEDrine SULFATE 50 MG/ML AMP IV PRN (10:15)
[2024-03-08] MEDS ORDERED: HYDROmorphone HCL 2 MG/ML VL/or syr IV PRN (10:15)
[2024-03-08] MEDS ORDERED: MIDAZOLAM HCL 2MG/2ML 2ml VIAL (1mg/ml) IV PRN (10:15)
[2024-03-08] MEDS ORDERED: diphenhdrAMINE HCL 50 MG/1 ML VL IV PRN (10:15)
[2024-03-08] MEDS: ceFAZolin 1GM/50ML 50 ML IV SCH (14:10)
[2024-03-08] MEDS: cloNIDine HCL 0.1 MG TAB PO PRN (18:53)
[2024-03-08] MEDS: LACTULOSE 20Gm/30ML SOLN PO SCH (22:00)
[2024-03-09] VITALS (15 sets, daily range): BP systolic 108–178; BP diastolic 48–73; PULSE 87–108; RESP 15–22; TEMP 97.8–99.4; O2SAT 93–99
[2024-03-09 09:06] LABS: Hematocrit 22.1 % (41.0-53.0)
[2024-03-09 09:07] LABS: Hemoglobin 7.2 g/dL (13.5-17.5); Mean Corpuscular Hemoglobin 27.7 pg (28.0-32.0); Mean Corpuscular Hgb Conc. 32.5 g/dL (32.0-36.0); Mean Corpuscular Volume 85.1 fL (80.0-100.0); Red Blood Cells 2.59 10^6/uL (4.5-5.90); White Blood Cell 7.7 10^3/uL (4.4-10.8)
[2024-03-09 09:13] LABS: Red Cell Distribution Width 25.4 % (11.8-14.3)
[2024-03-09 09:15] LABS: Band Neutrophils % (manual) 0; Basophils % (manual) 0 (0.0-2.0); Blast Cells 0; Eosinophils % (manual) 0 (0-7); Metamyelocytes % 0; Myelocytes % 0; Promyelocytes % 0; Reactive Lymphocytes 0
[2024-03-09 09:35] LABS: Anisocytosis Slight; Lymphocytes % (manual) 18 (10.0-50.0); Monocytes % (manual) 13 (0-12); Platelet Estimate Decreased
[2024-03-09] MEDS: ENOXAPARIN SOD 40 MG/0.4 ML SYRINGE SC ONE (12:21)
[2024-03-10] VITALS (8 sets, daily range): BP systolic 128–158; BP diastolic 47–84; PULSE 85–106; RESP 16–20; TEMP 98.4–99.6; O2SAT 90–100
[2024-03-10] MEDS ORDERED: PROPOFOL 10 MG/ML 20 ML IV ONE (09:28)
[2024-03-10] MEDS: ENOXAPARIN SOD 40 MG/0.4 ML SYRINGE SC SCH (09:46)
[2024-03-10] MEDS: NIFEdipine ER 30 MG TAB PO ONE (09:46)
[2024-03-10 12:28] LABS: Hematocrit 23.9 % (41.0-53.0); Mean Corpuscular Hgb Conc. 33.4 g/dL (32.0-36.0); Red Blood Cells 2.85 10^6/uL (4.5-5.90); White Blood Cell 8.4 10^3/uL (4.4-10.8)
[2024-03-10 12:31] LABS: Basophils % (manual) 0 (0.0-2.0); Blast Cells 0; Eosinophils % (manual) 0 (0-7); Metamyelocytes % 0; Myelocytes % 0; Promyelocytes % 0; Reactive Lymphocytes 0
[2024-03-10 13:21] LABS: Anisocytosis Slight; Band Neutrophils % (manual) 2; Lymphocytes % (manual) 11 (10.0-50.0); Monocytes % (manual) 4 (0-12)
[2024-03-10 13:22] LABS: Platelet Estimate Decreased
[2024-03-11 05:00] VITALS: BP 123/58; PULSE 99; RESP 18; TEMP 98.1; O2SAT 97
[2024-03-11 08:27] LABS: Chloride 105 mmol/L (98-107)
[2024-03-11 08:28] LABS: Anion Gap 7 (5-15); Calcium 7.9 mg/dL (8.7-10.4); Carbon Dioxide 21 mmol/L (20-30)
[2024-03-11 08:33] LABS: Blood Urea Nitrogen 8 mg/dL (9-23); Glucose 148 mg/dL (74-106)
[2024-03-11] MEDS: NIFEdipine ER 30 MG TAB PO SCH (08:44)
[2024-03-11 08:49] LABS: Sodium 133 mmol/L (136-145)
[2024-03-11 09:00] VITALS: BP 122/48; PULSE 102; RESP 18; TEMP 97.4; O2SAT 99
[2024-03-11 11:08] VITALS: BP 123/58; TEMP 36.3
[2024-03-11 13:00] VITALS: BP 117/52; PULSE 98; RESP 18; TEMP 98; O2SAT 94
== END 2024-03-11 12:00 | disposition hospice, home (50) | DRG 323 ==
LOC: EDBD 09:48 → ER 09:48 → TELE 13:21 → TELE-WESTW 22:15 → WEST WING 03-01 12:02 → TELE-WESTW 03-09 04:50
PROVIDERS: ADMIT Internal Medicine; ATTEND Internal Medicine
PROC: 30233R1 Transfusion of Nonautologous Platelets into Peripheral Vein, Percutaneous Approach (ICD-10-PCS; 2024-03-01)
PROC: 0SRR0JZ Replacement of Right Hip Joint, Femoral Surface with Synthetic Substitute, Open Approach (ICD-10-PCS; principal; 2024-03-08 08:35)
DX: S72.011A Unspecified intracapsular fracture of right femur, initial encounter for closed fracture (principal); G93.41 Metabolic encephalopathy; D61.818 Other pancytopenia; E43 Unspecified severe protein-calorie malnutrition; E72.20 Disorder of urea cycle metabolism, unspecified; K76.82 Hepatic encephalopathy; D69.6 Thrombocytopenia, unspecified; D62 Acute posthemorrhagic anemia; E83.51 Hypocalcemia; D68.9 Coagulation defect, unspecified; G31.2 Degeneration of nervous system due to alcohol; Z51.5 Encounter for palliative care; K70.30 Alcoholic cirrhosis of liver without ascites; D50.9 Iron deficiency anemia, unspecified; E87.20 Acidosis, unspecified; F10.20 Alcohol dependence, uncomplicated; E83.42 Hypomagnesemia; E87.6 Hypokalemia; R33.9 Retention of urine, unspecified; Z68.26 Body mass index [BMI] 26.0-26.9, adult; Z79.84 Long term (current) use of oral hypoglycemic drugs; Z79.01 Long term (current) use of anticoagulants; W18.39XA Other fall on same level, initial encounter; Y93.89 Activity, other specified; Y92.89 Other specified places as the place of occurrence of the external cause; Y99.8 Other external cause status; Y90.0 Blood alcohol level of less than 20 mg/100 ml
CPT/HCPCS: 36415; 70450; 70496; 70551; 71045; 72125; 72131; 72170; 73502; 73590; 73700; 76705; 76775; 80048; 80053; 80074; 80307; 80320; 81001; 82010; 82140; 82306; 82607; 82728; 82746; 82962; 83036; 83540; 83550; 83605; 83615; 83735; 84100; 84443; 84484; 85007; 85025; 85027; 85045; 85610; 85730; 86592; 86850; 86900; 86901; 92610; 93005; 93306; 93886; 93971; 97110; 97116; 97163; 97530; A4565; G0378; J1815; J1885; J2250; J2405; J2470; J2704; J3480; J3490

== ENCOUNTER 2024-04-29 10:34 | Inpatient (IN) | payer MEDICAID ==
[~2024-04-29] VITALS: Ht 170.2 cm; Wt 66.4 kg
[~2024-04-29 10:34] MED LIST: AML5T PO; GABA-1250 PO; METF-371 PO
[2024-04-29 10:45] VITALS: PULSE 105; RESP 14; O2SAT 97
[2024-04-29] MEDS: SODIUM CHLORIDE 0.9% 1,000 ML IV ONE ×2 (10:45→12:45)
[2024-04-29 11:23] LABS: Basophils # (auto) 0 10 ^3/uL (0-0.2); Basophils % (auto) 0.3 % (0.0-2.0); Eosinophils # (auto) 0.1 10 ^3/uL (0-0.8); Eosinophils % (auto) 1.3 % (0.0-7.0); Hematocrit 25.7 % (41.0-53.0); Hemoglobin 8.5 g/dL (13.5-17.5); Lymphocytes # (auto) 1.1 10 ^3/uL (0.4-5.4); Lymphocytes % (auto) 13.9 % (10.0-50.0); Mean Corpuscular Hemoglobin 28.1 pg (28.0-32.0); Mean Corpuscular Volume 85.2 fL (80.0-100.0); Monocytes # (auto) 0.8 10 ^3/uL (0-1.3); Monocytes % (auto) 9.9 % (0.0-12.0); Neutrophils # (auto) 5.9 10 ^3/uL (1.6-8.6); Neutrophils % (auto) 74.6 % (37.0-80.0); Nucleated Red Blood Cells % 0.1 %; Platelet Count (auto) 137 10^3/uL (140-450); Red Blood Cells 3.01 10^6/uL (4.5-5.90); Red Cell Distribution Width 17.9 % (11.8-14.3)
[2024-04-29 11:40] LABS: Alanine Aminotransferase 17 U/L (7-40); Alkaline Phosphatase 106 U/L (46-116); Anion Gap 8 (5-15); Aspartate Aminotransferase 21 U/L (13-40); BUN/Creatinine Ratio 14.3 (10.0-20.0); Blood Urea Nitrogen 10 mg/dL (9-23); Calcium 8.7 mg/dL (8.7-10.4); Carbon Dioxide 21 mmol/L (20-30); Chloride 109 mmol/L (98-107); Glucose 132 mg/dL (74-106); Potassium 4.2 mmol/L (3.5-5.1); Sodium 138 mmol/L (136-145)
[2024-04-29 11:41] LABS: Bilirubin, Total 1.1 mg/dL (0.2-1.0); Total Protein 7.8 g/dL (5.7-8.2)
[2024-04-29] MEDS: PIPERACILLIN-TAZOB 3.375GM 100 ML IV ONE (12:27)
[2024-04-29 12:37] LABS: Lactic Acid w/Reflex 2.4 mmol/L (0.4-2.0)
[2024-04-29] MEDS: AZITHROMYCIN 500MG/ 250ML 250 ML IV ONE (13:40)
[2024-04-29 14:05] LABS: Urine Bacteria FEW /hpf (None Seen); Urine Blood 2+ /uL (Negative); Urine Clarity Clear (Clear); Urine Color Yellow (Yellow); Urine Mucus FEW (None Seen); Urine Protein, UAD TRACE (Negative); Urine Specific Gravity 1.023 (1.001-1.035); Urine Urobilinogen 3 mg/dL (Negative); Urine WBC 78 /hpf (0 - 3); Urine pH 5.5 (5.0-9.0)
[2024-04-29] MEDS: THIAMINE 100mg/ml INJ (200mg/2ml VIAL) IV ONE (16:59)
[2024-04-29] MEDS: LACTULOSE 20Gm/30ML SOLN PO ONE (18:48)
[2024-04-29] MEDS: ONDANSETRON HCL 4 MG/2 ML VIAL IV ONE (20:27)
[2024-04-29] MEDS: MORPHINE SULFATE INJ 2 MG/ml SYRG IV ONE (20:28)
[2024-04-29 20:45] VITALS: PULSE 98; RESP 16; O2SAT 97
[2024-04-29] MEDS: ACCU-CHEK COMFORT CURVE STRIP VI SCH (22:00)
[2024-04-29] MEDS ORDERED: ACETAMINOPHEN 325 MG TAB PO PRN (22:00)
[2024-04-29] MEDS: InsuLIN REG 1unit/0.01ml Soln (100units/ml) SC SCH (22:00)
[2024-04-29] MEDS ORDERED: DEXTROSE (50%) 50ML SYRG IV PRN (22:00)
[2024-04-29] MEDS ORDERED: ONDANSETRON HCL 4 MG/2 ML VIAL IV PRN (22:00)
[2024-04-29] MEDS ORDERED: DOCUSATE SOD 100 MG CAP PO PRN (22:00)
[2024-04-29] MEDS: SODIUM CHLORIDE 0.9% 1,000 ML IV SCH (22:30)
[2024-04-29] MEDS: LACTULOSE 20Gm/30ML SOLN PO SCH (22:30)
[2024-04-29] MEDS ORDERED: MORPHINE SULFATE INJ 2 MG/ml SYRG IV PRN (22:45)
[2024-04-29] MEDS ORDERED: NITROGLYCERIN 0.4 MG SL TAB SL PRN (22:45)
[2024-04-30] VITALS (8 sets, daily range): BP systolic 108–144; BP diastolic 55–81; PULSE 98–123; RESP 16–20; TEMP 97.6–99.5; O2SAT 94–99
[2024-04-30 07:06] LABS: Alanine Aminotransferase 17 U/L (7-40); Alkaline Phosphatase 106 U/L (46-116); Anion Gap 9 (5-15); BUN/Creatinine Ratio 12.1 (10.0-20.0); Blood Urea Nitrogen 8 mg/dL (9-23); Calcium 8.9 mg/dL (8.7-10.4); Carbon Dioxide 20 mmol/L (20-30); Chloride 109 mmol/L (98-107); Glucose 163 mg/dL (74-106); Potassium 3.9 mmol/L (3.5-5.1); Sodium 138 mmol/L (136-145)
[2024-04-30 07:07] LABS: Aspartate Aminotransferase 25 U/L (13-40)
[2024-04-30 07:08] LABS: Total Protein 7.8 g/dL (5.7-8.2)
[2024-04-30 07:21] LABS: Basophils # (auto) 0 10 ^3/uL (0-0.2); Basophils % (auto) 0.5 % (0.0-2.0); Eosinophils # (auto) 0.1 10 ^3/uL (0-0.8); Eosinophils % (auto) 2.5 % (0.0-7.0); Hematocrit 26.4 % (41.0-53.0); Hemoglobin 8.9 g/dL (13.5-17.5); Lymphocytes # (auto) 1.1 10 ^3/uL (0.4-5.4); Lymphocytes % (auto) 20.2 % (10.0-50.0); Mean Corpuscular Hemoglobin 28.8 pg (28.0-32.0); Mean Corpuscular Hgb Conc. 33.7 g/dL (32.0-36.0); Mean Corpuscular Volume 85.5 fL (80.0-100.0); Monocytes # (auto) 0.8 10 ^3/uL (0-1.3); Monocytes % (auto) 14.5 % (0.0-12.0); Neutrophils # (auto) 3.5 10 ^3/uL (1.6-8.6); Neutrophils % (auto) 62.3 % (37.0-80.0); Nucleated Red Blood Cells % 0.2 %; Platelet Count (auto) 118 10^3/uL (140-450); Red Blood Cells 3.08 10^6/uL (4.5-5.90); Red Cell Distribution Width 17.9 % (11.8-14.3); White Blood Cell 5.6 10^3/uL (4.4-10.8)
[2024-04-30] MEDS: cefTRIAXone 1GM/50ML D5W 50 ML IV SCH (09:13)
[2024-04-30] MEDS: FAMOTIDINE (10MG/ML) 2ML VL IV SCH (09:14)
[2024-04-30] MEDS: ENOXAPARIN SOD 40 MG/0.4 ML SYRINGE SC ONE (11:50)
[2024-04-30] MEDS: AZITHROMYCIN 500MG/ 250ML 250 ML IV SCH (13:08)
[2024-05-01] VITALS (8 sets, daily range): BP systolic 128–146; BP diastolic 59–79; PULSE 91–106; RESP 16–19; TEMP 98–98.6; O2SAT 96–99
[2024-05-01] MEDS: HYDROcodone-ACET 5/325MG TAB PO PRN (01:28)
[2024-05-01 09:48] LABS: Basophils # (auto) 0 10 ^3/uL (0-0.2); Basophils % (auto) 0.4 % (0.0-2.0); Eosinophils # (auto) 0.1 10 ^3/uL (0-0.8); Eosinophils % (auto) 1.9 % (0.0-7.0); Hematocrit 27.3 % (41.0-53.0); Lymphocytes # (auto) 1.5 10 ^3/uL (0.4-5.4); Lymphocytes % (auto) 26.1 % (10.0-50.0); Mean Corpuscular Volume 84.9 fL (80.0-100.0); Monocytes # (auto) 0.9 10 ^3/uL (0-1.3); Monocytes % (auto) 16.4 % (0.0-12.0); Neutrophils # (auto) 3.1 10 ^3/uL (1.6-8.6); Neutrophils % (auto) 55.2 % (37.0-80.0); Nucleated Red Blood Cells % 0.1 %; Platelet Count (auto) 146 10^3/uL (140-450); Red Blood Cells 3.21 10^6/uL (4.5-5.90); Red Cell Distribution Width 18.1 % (11.8-14.3); White Blood Cell 5.6 10^3/uL (4.4-10.8)
[2024-05-01] MEDS ORDERED: ENOXAPARIN SOD 40 MG/0.4 ML SYRINGE SC SCH (10:00)
[2024-05-01 10:04] LABS: Alanine Aminotransferase 17 U/L (7-40); Albumin 3.1 g/dL (3.2-4.8); Alkaline Phosphatase 111 U/L (46-116); Aspartate Aminotransferase 25 U/L (13-40); Calcium 8.9 mg/dL (8.7-10.4); Carbon Dioxide 19 mmol/L (20-30); Glucose 161 mg/dL (74-106); Magnesium 1.5 mg/dL (1.6-2.6); Potassium 3.6 mmol/L (3.5-5.1); Sodium 139 mmol/L (136-145)
[2024-05-01 10:05] LABS: Bilirubin, Total 0.9 mg/dL (0.2-1.0); Total Protein 7.8 g/dL (5.7-8.2)
[2024-05-01 10:33] LABS: BUN/Creatinine Ratio 8.6 (10.0-20.0); Blood Urea Nitrogen < 5 mg/dL (9-23)
[2024-05-01 10:35] LABS: INR 1.31 (0.9-1.15); Prothrombin Time 13.6 sec (9.3-11.8)
[2024-05-01 10:45] LABS: Anion Gap 11 (5-15); Chloride 109 mmol/L (98-107)
[2024-05-01] MEDS: MAGNESIUM SULFATE 1GM/100ML 100 ML IV SCH (14:51)
[2024-05-02 05:00] VITALS: BP 148/74; PULSE 100; RESP 18; TEMP 98; O2SAT 98
[2024-05-02 08:00] VITALS: PULSE 101; PULSE 106; RESP 18; O2SAT 99
[2024-05-02 09:00] VITALS: BP 147/84; PULSE 101; RESP 18; TEMP 98.5; O2SAT 99
[2024-05-02] MEDS: SPIRONOLACTONE 25 MG TAB PO SCH (09:20)
[2024-05-02] MEDS: FUROSEMIDE 20 MG/2 ML VIAL IV SCH (09:22)
[2024-05-02 10:18] LABS: Basophils # (auto) 0 10 ^3/uL (0-0.2); Basophils % (auto) 0.3 % (0.0-2.0); Eosinophils # (auto) 0.1 10 ^3/uL (0-0.8); Eosinophils % (auto) 2.6 % (0.0-7.0); Hematocrit 28.7 % (41.0-53.0); Hemoglobin 9.5 g/dL (13.5-17.5); Lymphocytes % (auto) 19.8 % (10.0-50.0); Mean Corpuscular Hemoglobin 27.9 pg (28.0-32.0); Mean Corpuscular Volume 84.4 fL (80.0-100.0); Monocytes # (auto) 0.7 10 ^3/uL (0-1.3); Monocytes % (auto) 13.9 % (0.0-12.0); Neutrophils # (auto) 3.1 10 ^3/uL (1.6-8.6); Neutrophils % (auto) 63.4 % (37.0-80.0); Nucleated Red Blood Cells % 0.1 %; Platelet Count (auto) 124 10^3/uL (140-450); Red Cell Distribution Width 17.8 % (11.8-14.3); White Blood Cell 4.9 10^3/uL (4.4-10.8)
[2024-05-02 10:32] LABS: Alanine Aminotransferase 20 U/L (7-40); Albumin 3.2 g/dL (3.2-4.8); Alkaline Phosphatase 118 U/L (46-116); Anion Gap 10 (5-15); Aspartate Aminotransferase 26 U/L (13-40); BUN/Creatinine Ratio 8.5 (10.0-20.0); Blood Urea Nitrogen 5 mg/dL (9-23); Calcium 8.8 mg/dL (8.7-10.4); Carbon Dioxide 20 mmol/L (20-30); Chloride 106 mmol/L (98-107); Glucose 158 mg/dL (74-106); Magnesium 1.7 mg/dL (1.6-2.6); Potassium 4.1 mmol/L (3.5-5.1); Sodium 136 mmol/L (136-145)
[2024-05-02 10:33] LABS: Total Protein 8.1 g/dL (5.7-8.2)
[2024-05-02 13:00] VITALS: BP 118/64; PULSE 105; RESP 16; O2SAT 98
[2024-05-02 18:41] LABS: Body Fluid Polymorphonuclear 10 % (0-25); Body Fluid Red Blood Cells 50 CUMM (0-2000); Body Fluid White Blood Cells 225 CUMM (0-200); Body Fluid pH 6
[2024-05-02 20:00] VITALS: PULSE 96; PULSE 97; RESP 16; O2SAT 98
[2024-05-02 21:00] VITALS: BP 135/73; PULSE 94; RESP 19; TEMP 99; O2SAT 98
[2024-05-02] MEDS: LACTULOSE 20Gm/30ML SOLN PO SCH (21:50)
[2024-05-03] MEDS: MELATONIN 5 MG TAB PO ONE (02:05)
[2024-05-03 05:00] VITALS: BP 142/77; PULSE 94; RESP 18; TEMP 98.4; O2SAT 100
[2024-05-03 06:33] LABS: Basophils # (auto) 0 10 ^3/uL (0-0.2); Basophils % (auto) 0.6 % (0.0-2.0); Eosinophils # (auto) 0.1 10 ^3/uL (0-0.8); Eosinophils % (auto) 3.1 % (0.0-7.0); Hematocrit 28.4 % (41.0-53.0); Hemoglobin 9.4 g/dL (13.5-17.5); Lymphocytes # (auto) 1.2 10 ^3/uL (0.4-5.4); Lymphocytes % (auto) 30.6 % (10.0-50.0); Mean Corpuscular Hgb Conc. 33.2 g/dL (32.0-36.0); Mean Corpuscular Volume 84.4 fL (80.0-100.0); Monocytes # (auto) 0.6 10 ^3/uL (0-1.3); Neutrophils # (auto) 1.9 10 ^3/uL (1.6-8.6); Neutrophils % (auto) 49.7 % (37.0-80.0); Nucleated Red Blood Cells % 0.3 %; Platelet Count (auto) 140 10^3/uL (140-450); Red Blood Cells 3.37 10^6/uL (4.5-5.90); Red Cell Distribution Width 17.7 % (11.8-14.3); White Blood Cell 3.9 10^3/uL (4.4-10.8)
[2024-05-03 06:37] LABS: Alanine Aminotransferase 19 U/L (7-40); Alkaline Phosphatase 116 U/L (46-116); Anion Gap 9 (5-15); BUN/Creatinine Ratio 10.3 (10.0-20.0); Blood Urea Nitrogen 6 mg/dL (9-23); Calcium 8.9 mg/dL (8.7-10.4); Carbon Dioxide 21 mmol/L (20-30); Chloride 105 mmol/L (98-107); Glucose 132 mg/dL (74-106); Magnesium 1.6 mg/dL (1.6-2.6); Potassium 3.7 mmol/L (3.5-5.1); Sodium 135 mmol/L (136-145)
[2024-05-03 06:38] LABS: Albumin 3.1 g/dL (3.2-4.8); Aspartate Aminotransferase 31 U/L (13-40); Bilirubin, Total 1.3 mg/dL (0.2-1.0); Phosphorus 3.8 mg/dL (2.4-5.1); Total Protein 8.3 g/dL (5.7-8.2)
[2024-05-03 08:00] VITALS: PULSE 81
[2024-05-03 09:08] VITALS: BP 138/69; PULSE 86; RESP 17; TEMP 98.5; O2SAT 100
[2024-05-03 13:00] VITALS: BP 163/80; PULSE 95; RESP 16; TEMP 98.7; O2SAT 99
[2024-05-03 15:07] VITALS: BP 165/80; TEMP 37.1
[2024-05-04 13:07] LABS: Albumin, Body Fluid 0.7 g/dL (Not Estab.); Protein, Body Fluid 1.3 g/dL (.)
== END 2024-05-03 16:35 | disposition hospice, home (50) | DRG 720 ==
LOC: ER 10:34 → EDBD 10:34 → TELE 22:45 → TELE-WESTW 23:45 → TELE-CENTR 04-30 05:09
PROVIDERS: ADMIT Internal Medicine Geriatric Medicine; ATTEND Internal Medicine Geriatric Medicine
PROC: 05H933Z Insertion of Infusion Device into Right Brachial Vein, Percutaneous Approach (ICD-10-PCS; 2024-04-29)
PROC: B54MZZA Ultrasonography of Right Upper Extremity Veins, Guidance (ICD-10-PCS; 2024-04-29)
PROC: 0W9G3ZZ Drainage of Peritoneal Cavity, Percutaneous Approach (ICD-10-PCS; principal; 2024-05-02)
PROC: 05H933Z Insertion of Infusion Device into Right Brachial Vein, Percutaneous Approach (ICD-10-PCS; 2024-05-03)
PROC: B54MZZA Ultrasonography of Right Upper Extremity Veins, Guidance (ICD-10-PCS; 2024-05-03)
DX: A41.59 Other Gram-negative sepsis (principal); G93.41 Metabolic encephalopathy; J15.69 Pneumonia due to other Gram-negative bacteria; E44.0 Moderate protein-calorie malnutrition; K76.82 Hepatic encephalopathy; J15.9 Unspecified bacterial pneumonia; E13.65 Other specified diabetes mellitus with hyperglycemia; K70.31 Alcoholic cirrhosis of liver with ascites; Z51.5 Encounter for palliative care; E78.5 Hyperlipidemia, unspecified; I10 Essential (primary) hypertension; Z74.01 Bed confinement status; Z87.442 Personal history of urinary calculi; Z68.22 Body mass index [BMI] 22.0-22.9, adult; Z79.84 Long term (current) use of oral hypoglycemic drugs; Z79.899 Other long term (current) drug therapy
CPT/HCPCS: 36415; 49083; 70450; 71045; 73502; 74150; 76705; 80053; 81001; 82140; 82962; 83605; 83735; 83986; 84100; 84484; 85025; 85610; 86850; 86900; 86901; 87040; 87081; 87086; 87205; 89051; 96365; 96375; 99291; G0378; J1815; J2405; J2543; J3490